=== PATIENT | male | born 1945 | race Caucasian/White ===

== ENCOUNTER → 2016-06-07 | Outpatient (CLI) | payer MEDICARE, OTHER | END | disposition home or self-care (01) | LOC: RAD.S 14:00 | DX: R10.12 Left upper quadrant pain (principal); R15.0 Incomplete defecation; K86.2 Cyst of pancreas; N28.1 Cyst of kidney, acquired; M47.895 Other spondylosis, thoracolumbar region; Z98.890 Other specified postprocedural states ==